=== PATIENT | female | born 1970 | race Caucasian/White ===

== ENCOUNTER 2019-11-30 10:21 | Outpatient (REF) | payer MEDICAID, SELFPAY ==
--- NOTE | 2019-11-30 | MM_ITS ---
EXAMINATION: MM SCREENING DIGITAL BREAST TOMOSYNTHESIS, BILATERAL CLINICAL INFORMATION: Screening. Asymptomatic. The lifetime risk of breast cancer based on the Tyrer-Cuzick Model is 8.5%. COMPARISON: Mammography: 05/09/2018, 03/15/2017, and 02/02/2016. TECHNIQUE: Digital breast tomosynthesis is performed in both the craniocaudal and mediolateral oblique views along with computer-aided detection (CAD). Synthesized 2D images are generated from the tomosynthesis. FINDINGS: The breasts are heterogeneously dense, which may obscure small masses (ACR BI-RADS breast composition Category c). There is a stable parenchymal pattern within the right breast with no new abnormal dominant masses or new suspicious grouping of microcalcifications. Within the lateral aspect of the left breast, there is an irregularly marginated density, approximately 4 cm from the nipple for which spot compression films and possibly ultrasound is recommended. Radiology staff will contact patient to obtain this study. MM/MM tomosynthesis screening BI IMPRESSION: Left breast density for further evaluation as described. ASSESSMENT: BI-RADS 0: Incomplete - Need Additional Imaging Evaluation RECOMMENDATION: 1. Additional views of the left breast. 2. Targeted ultrasound if warranted after review of the additional views. 3. Radiology department staff will contact the patient for additional imaging.
== END 2019-11-30 10:22 | disposition home or self-care (01) ==
LOC: HO.MAMMO 10:21
PROVIDERS: PCP Family Medicine; Visit Provider Obstetrics & Gynecology
DX: Z12.31 Encounter for screening mammogram for malignant neoplasm of breast (principal)
CPT/HCPCS: 77063; 77067

== ENCOUNTER 2019-12-18 11:36 | Outpatient (REF) | payer MEDICAID, SELFPAY ==
--- NOTE | 2019-12-18 11:42 | MM_ITS ---
EXAMINATION: MM DIAGNOSTIC DIGITAL BREAST TOMOSYNTHESIS, LEFT CLINICAL INFORMATION: For further evaluation of an irregularly marginated density noted in the lateral left breast on recent screening mammography. COMPARISON: Mammography: 11/30/2019, 05/09/2018, 03/15/2017, 02/02/2016. Breast ultrasound of 12/18/2019. TECHNIQUE: Digital breast tomosynthesis is performed. 2D images are generated from the tomosynthesis. The following views are obtained: Left spot compression craniocaudal, mediolateral and mediolateral oblique views. FINDINGS: The breasts are heterogeneously dense, which may obscure small masses (ACR BI-RADS breast composition Category c). Additional views show no significant mass, architectural abnormality, or abnormal calcifications. Two oval stable subareolar masses measuring 1.1 and 1.2 cm are again noted. MM/MM tomosynthesis added views L IMPRESSION: No significant mammographic abnormality is noted in the area of concern in the lateral left breast, 4 cm from nipple. ASSESSMENT: BI-RADS 2: Benign RECOMMENDATION: Routine annual mammography screening. Please follow the report of the diagnostic left breast ultrasound performed on the same day under separate cover. The findings and recommendations were discussed with the patient at the time of the exam.
--- NOTE | 2019-12-18 11:44 | US_ITS ---
EXAMINATION: US DIAGNOSTIC ULTRASOUND BREAST, LEFT CLINICAL INFORMATION: For further evaluation of an irregular density noted in the left lateral breast on the recent screening mammography.. COMPARISON: Mammograms of 12/18/2019, 11/30/2019, 05/09/2018. TECHNIQUE: Ultrasound of the breast is performed with real-time ziaguirre scale imaging and color Doppler. FINDINGS: Real-time scanning of the left lateral breast from 2-4 o'clock was performed with attention to 5 to 6 cm from nipple. A 0.8 x 0.3 x 0.9 cm oval mildly hypoechoic wider than tall lesion is noted at 3 o'clock, 6 cm from nipple without internal vascularity or associated posterior acoustic features. Results are discussed with the patient at time of visit. US/US breast LT limited IMPRESSION: A 0.9 cm oval mildly hypoechoic lesion at 3 clock in the left breast, 6 cm from nipple is probably benign. ASSESSMENT: BI-RADS 3: Probably Benign RECOMMENDATION: Short-term interval follow-up left breast diagnostic ultrasound in 6 months. The patient was informed of results at the time of the exam.
== END 2019-12-18 11:37 | disposition home or self-care (01) ==
LOC: HO.MAMMO 11:36
PROVIDERS: Visit Provider Obstetrics & Gynecology
DX: R92.2 Inconclusive mammogram (principal)
CPT/HCPCS: 76642; 77065

== ENCOUNTER 2020-06-20 15:06 | Outpatient (REF) | payer MEDICAID, SELFPAY ==
--- NOTE | ~2020-06-20 | US_ITS ---
EXAMINATION: US DIAGNOSTIC ULTRASOUND BREAST, LEFT CLINICAL INFORMATION: Short interval six-month follow-up probable benign circumscribed oval nodule 3:00 left breast, possibly fibroadenoma. COMPARISON: Targeted ultrasound left breast 12/18/2019, mammography 12/18/2019, 11/30/2019. TECHNIQUE: Ultrasound left breast is targeted to the outer quadrant. Grayscale imaging and color Doppler are performed without and with harmonics. FINDINGS: The nodule for follow-up 3:00 position 6 cm from nipple is stable in size and contour and echogenicity. There is a circumscribed and measures approximately 8 x 3 x 8 mm. Prior measurements are 9 x 3 x 8 mm. There is no increased or decreased through transmission of sound. There is no interval new cystic or solid mass in the targeted area. No architectural abnormality. Results are provided to the patient at time of visit by the technologist. US/US breast LT limited IMPRESSION: Stable subcentimeter nodule mid 3:00 left breast, possibly fibroadenoma. ASSESSMENT: BI-RADS 3: Probably Benign RECOMMENDATION: Targeted ultrasound left breast at time of annual bilateral mammography, due in 6 months. This patient's information was entered into a reminder system with a target due date for their next mammogram.
== END 2020-06-20 15:07 | disposition home or self-care (01) ==
LOC: HO.MAMMO 15:06
PROVIDERS: Visit Provider Obstetrics & Gynecology
DX: N60.01 Solitary cyst of right breast (principal)
CPT/HCPCS: 76642